=== PATIENT | male | born 1975 | race Caucasian/White ===

== ENCOUNTER 2021-07-31 16:06 | Emergency (ER) | payer OTHER ==
[~2021-07-31] VITALS: Ht 190.5 cm; Wt 117.9 kg
[2021-07-31] MEDS ORDERED: CELEBREX100 MG/1 C PO (16:45)
[2021-07-31] MEDS ORDERED: ALLOPURINOL 10100 M3 PO (16:46)
[2021-07-31] MEDS ORDERED: NORFLEX100 MG PO (16:47)
[2021-07-31] MEDS ORDERED: PREDNISONE 20 M20 M1 PO ×2 (17:36→18:57)
[2021-07-31] MEDS ORDERED: HYDROCODON-ACE1 EAC7 PO (17:36)
[2021-07-31 17:45] VITALS: BP 134/72
== END 2021-07-31 17:46 | disposition home or self-care (01) ==
LOC: M.ERS 16:06
DX: M54.2 Cervicalgia (principal); M25.511 Pain in right shoulder; Z79.899 Other long term (current) drug therapy; Z79.2 Long term (current) use of antibiotics; X58.XXXA Exposure to other specified factors, initial encounter; Y93.89 Activity, other specified; Y92.89 Other specified places as the place of occurrence of the external cause; Y99.8 Other external cause status